=== PATIENT | male | born 1980 | race Caucasian/White ===

== ENCOUNTER 2016-07-17 19:00 | Emergency (ER) ==
[2016-07-17 19:13] VITALS: BP 177/78; TEMP 101.6; BMI 25.0
[2016-07-17 19:36] LABS: FLU INTERNAL QC INTERNAL QC VALID; RAPID FLU A NEGATIVE (NEGATIVE); RAPID FLU B NEGATIVE (NEGATIVE)
--- NOTE | 2016-07-17 20:03 | ED.PDOC ---
General ED Provider: Dr. TRELL PARISI-ER Chief Complaint: Chest Wall Injury/Pain Stated Complaint: jeniffer been coughing for a week... Time Seen by Physician: 19:05 Mode of Arrival: Walk-In Information Source: Patient Exam Limitations: No limitations Nursing and Triage Documentation Reviewed and Agree: Yes Respiratory Complaint Exam - Respiratory Complaint/Exam Onset/Duration: 7 days Symptoms Are: Still present Timing: Intermittent Initial Severity: Mild Current Severity: Mild Location: Chest Character: Reports: Productive cough Aggravating: Reports: URI Alleviating: Reports: None Associated Signs and Symptoms: Reports: Fever, URI, Nasal congestion. Denies: Rapid breathing, Dyspnea, Chills, Chest pain, Pleuritic chest pain, Wheezing, Hemoptysis, Dizziness, Calf pain, Calf swelling, Edema, Hoarseness, Sinus discomfort, Vomiting, Sore throat, Weight loss, Decreased oral intake, Increased thirst, Increased appetite, Increased urination Related History: Reports: Similar episode History of Healthcare-Acquired Pneumonia: No Related Surgical History: Reports: None Pulmonary Embolism Risk Factors: Smoking Cardiac Risk Factors: Reports: Smoking Tuberculosis Risk Factors: Reports: Smoking Status Asthmaticus Risk Factors: Reports: None Home Oxygen Use: No Recent Stress Test: No Recent Echo/LV Function: No Current Antibiotic Use: No Current Asthma Medication Use: No Respiratory Distress: None Inadequate Respiratory Effort: No Dysphagia Present: No Stridor Present: No JVD Present: No Accessory Muscle Use: No Retractions: Not Present Diminished Breath Sounds: No Sinus Tenderness: None Grunting Respirations: No Kussmaul Respirations: No Differential Diagnoses: Pneumonia, Bronchitis Review of Systems - Review Of Systems Constitutional: Reports: Fever Eyes: Reports: No symptoms Ears, Nose, Mouth, Throat: Reports: Nose discharge Respiratory: Reports: Cough Cardiac: Reports: No symptoms GI: Reports: No symptoms : Reports: No symptoms Musculoskeletal: Reports: No symptoms Skin: Reports: No symptoms Neurological: Reports: No symptoms Endocrine: Reports: No symptoms Hematologic/Lymphatic: Reports: No symptoms All Other Systems: Reviewed and Negative Past Medical History - Past Medical History Endocrine: Reports: None Cardiovascular: Reports: None Respiratory: Reports: None Hematological: Reports: None Gastrointestinal: Reports: None Genitourinary: Reports: None Neuro/Psych: Reports: None Musculoskeletal: Reports: Back Pain Cancer: Reports: None - Surgical History General Surgical History: Reports: Hernia Repair, Other (HERNIA REPAIR ABSCESS I /D) - Family History Family History: Reports: Unknown - Social History Smoking Status: Current every day smoker Hx Substance Use: No Alcohol Screening: Occasionally Lives: With family Physical Exam - Physical Exam Appearance: Well-appearing, No pain distress, Well-nourished Eyes: JESSICA, EOMI, Conjunctiva clear ENT: Ears normal, Nose normal, Oropharynx normal Neck: Supple Respiratory: Crackles, Rhonchi Cardiovascular: RRR GI/: Soft Musculoskeletal: Normal strength, ROM intact, No edema, No calf tenderness Skin: Warm, Dry, Normal color Neurological: Sensation intact, Motor intact, Reflexes intact, Cranial nerves intact, Alert, Oriented Psychiatric: Affect appropriate, Mood appropriate Interpretation - Radiology Interpretation Radiology Interpretation By: ED Physician Radiology Results: Positive Exam Interpreted: CXR Critical Care Note - Critical Care Note Total Time (mins): 0 Course - Course Orders, Labs, Meds: Lab Review 07/17/16 19:15 Influenza A (Rapid) Negative Influenza B (Rapid) Negative Orders Category Date Time Status MOLECULAR GROUP A STREP Stat LAB 07/17/16 19:15 Results RAPID FLU A/B Stat LAB 07/17/16 19:15 Completed STREP SCREEN Stat LAB 07/17/16 19:15 Results CXR [CHEST, 2 VIEWS PA & LAT] Stat RADS 07/17/16 19:20 Taken Vital Signs: Temp Pulse Resp BP Pulse Ox 07/17/16 19:02 101.6 F H 106 H 20 177/78 H 95 Departure - Departure Time of Disposition: 20:03 Disposition: HOME SELF-CARE Discharge Problem: Bronchitis, Lung nodule Instructions: Acute Bronchitis (ED) Condition: Good Pt referred to PMD for follow-up: Yes Additional Instructions: augmentin 875mg bid x 7 days=--medrol dose pack--tessalon perles 200mg tid prn cough 30--stop smoking--f/u with pcp for further evaluation of lung nodule Allergies/Adverse Reactions: Allergies Penicillins Adverse Reaction (Verified 07/17/16 19:07) Pt states, "am possibly allergic to penicillin" Home Medications: Ambulatory Orders 1 [No Reported Medications] 0 mg PO DAILY 12/22/12 Disposition Discussed With: Patient
--- NOTE | 2016-07-17 20:14 | DI ---
EXAM: Chest, two views, 07/17/2016 HISTORY: Cough and fever COMPARISON: 04/10/2015 FINDINGS / IMPRESSION: Cardiomediastinal contours appear within normal limits. Benign postinflamma tory calcification of the right lung is stable. There is no pulmonary consolidation, effusion or pneumothorax. No acute cardiopulmonary process.
== END 2016-07-17 20:12 | disposition home or self-care (01) ==
LOC: ED 19:00
DX: J20.9 Acute bronchitis, unspecified (principal); R91.1 Solitary pulmonary nodule; F17.210 Nicotine dependence, cigarettes, uncomplicated
CPT/HCPCS: 87651; 87804; 87880; 99283

== ENCOUNTER 2016-11-17 12:40 | Emergency (ER) ==
[2016-11-17 12:48] VITALS: BP 127/57; TEMP 97.9; BMI 26.2
[2016-11-17] MEDS ORDERED: TORADOL IM STA (12:58)
[2016-11-17] MEDS ORDERED: BACTRIM DS 800/160 MG PO STA (12:58)
--- NOTE | 2016-11-17 13:01 | ED.PDOC ---
General ED Provider: Dr. AMANUEL REEDER Chief Complaint: Abscess Stated Complaint: left armpit, has boil, swelling, redness, painful. Time Seen by Physician: 12:59 Mode of Arrival: Walk-In Information Source: Patient Nursing and Triage Documentation Reviewed and Agree: Yes Skin Complaint Exam - Skin/Soft Tissue Complaint/Exam Symptoms Are: Still present Timing: Constant Initial Severity: Mild Current Severity: Mild Character: Reports: Redness, Swelling, Raised Aggravating: Reports: None Alleviating: Reports: None Associated Signs and Symptoms: Denies: Fever, Chills, Itching, Drainage, Bruising, Tenderness, Red streaks, Joint swelling Related Surgical History: Reports: None Recent Exposure to Others w/Similar Symptoms: No Skin Findings: Present: Erythema, Induration Differential Diagnoses: Abscess, Cellulitis Review of Systems - Review Of Systems Constitutional: Reports: No symptoms Eyes: Reports: No symptoms Ears, Nose, Mouth, Throat: Reports: No symptoms Respiratory: Reports: No symptoms Cardiac: Reports: No symptoms GI: Reports: No symptoms : Reports: No symptoms Musculoskeletal: Reports: No symptoms Skin: Reports: No symptoms Neurological: Reports: No symptoms Endocrine: Reports: No symptoms Hematologic/Lymphatic: Reports: No symptoms All Other Systems: Reviewed and Negative Past Medical History - Past Medical History Previously Healthy: Yes Endocrine: Reports: None Cardiovascular: Reports: None Respiratory: Reports: None Hematological: Reports: None Gastrointestinal: Reports: None Genitourinary: Reports: None Neuro/Psych: Reports: None Musculoskeletal: Reports: Back Pain Cancer: Reports: None - Surgical History General Surgical History: Reports: Hernia Repair, Other (HERNIA REPAIR ABSCESS I /D) - Family History Family History: Reports: Unknown - Social History Smoking Status: Current every day smoker Hx Substance Use: No Alcohol Screening: Occasionally - Immunizations Tetanus Shot up to Date: Yes Physical Exam - Physical Exam Appearance: Well-appearing, No pain distress, Well-nourished Eyes: JESSICA, EOMI, Conjunctiva clear ENT: Ears normal, Nose normal, Oropharynx normal Respiratory: Airway patent, Breath sounds clear, Breath sounds equal, Respirations nonlabored Cardiovascular: RRR, Pulses normal, No rub, No murmur GI/: Soft, Nontender, No masses, Bowel sounds normal, No Organomegaly Musculoskeletal: Normal strength, ROM intact, No edema, No calf tenderness Skin: Warm, Dry, Normal color Neurological: Sensation intact, Motor intact, Reflexes intact, Cranial nerves intact, Alert, Oriented Psychiatric: Affect appropriate, Mood appropriate Critical Care Note - Critical Care Note Total Time (mins): 0 Course - Course Orders, Labs, Meds: Orders Category Date Time Status Ketorolac Tromethamine [Toradol] MEDS 11/17/16 12:58 Discontinued 30 mg IM ONCE STA Sulfamethoxazole/Trimethoprim [Bactrim Ds 800/160 mg] MEDS 11/17/16 12:58 Discontinued 1 tab PO ONCE STA Medications Discontinued Medications Generic Name Dose Route Start Last Admin Trade Name Freq PRN Reason Stop Dose Admin Ketorolac Tromethamine 30 mg 11/17/16 12:58 Toradol IM 11/17/16 12:59 ONCE STA Trimethoprim/Sulfamethoxazole 1 tab 11/17/16 12:58 Bactrim Ds 800/160 Mg PO 11/17/16 12:59 ONCE STA Vital Signs: Temp Pulse Resp BP Pulse Ox 11/17/16 12:43 97.9 F 89 16 127/57 L 96 Departure - Departure Time of Disposition: 13:01 Disposition: HOME SELF-CARE Discharge Problem: Abscess Instructions: Abscess (ED) Condition: Stable Pt referred to PMD for follow-up: Yes Additional Instructions: Take medication with food, Tylenol prn f/u in [facility] in 3 days Prescriptions: Sulfamethoxazole/Trimethoprim [Bactrim Ds 800/160 mg] 1 tab PO Q12HR #20 tablet Hydrocodone/Acetaminophen [[place] 5-325 Tablet] 1 tab PO TID PRN #10 tablet PRN Reason: PAIN Allergies/Adverse Reactions: Allergies Penicillins Adverse Reaction (Verified 07/17/16 19:07) Pt states, "am possibly allergic to penicillin" Home Medications: Ambulatory Orders 1 [No Reported Medications] 0 mg PO DAILY 12/22/12 Hydrocodone/Acetaminophen [[place] 5-325 Tablet] 1 tab PO TID PRN #10 tablet 11/17 Sulfamethoxazole/Trimethoprim [Bactrim Ds 800/160 mg] 1 tab PO Q12HR #20 tablet 11/17/16 Disposition Discussed With: Patient
== END 2016-11-17 13:28 | disposition home or self-care (01) ==
LOC: ED 12:40
DX: L02.412 Cutaneous abscess of left axilla (principal); F17.210 Nicotine dependence, cigarettes, uncomplicated
CPT/HCPCS: 96372; 99282

== ENCOUNTER 2017-06-15 12:47 | Emergency (ER) ==
[2017-06-15 13:03] VITALS: BP 156/87; BMI 26.2
[2017-06-15] MEDS ORDERED: MOTRIN SUSP PO STA (13:11)
--- NOTE | 2017-06-15 13:51 | ED.PDOC ---
General ED Provider: Dr. TRELL PARISI-ER Chief Complaint: Fever Stated Complaint: jeniffer been sick for 4 days with cough and fever Time Seen by Physician: 13:00 Mode of Arrival: Walk-In Information Source: Patient Exam Limitations: No limitations Nursing and Triage Documentation Reviewed and Agree: Yes Reviewed sepsis parameters & appropriate labs ordered?: Yes System Inflammatory Response Syndrome: Not Applicable Sepsis Protocol: For patient's 13 years and over: Temp is 96.8 and below OR 101 and greater Pulse >90 BPM Resp >20/minute Acutely Altered Mental Status Are patient's symptoms suggestive of a new infection, such as: -Pneumonia -Skin, Soft Tissue -Endocarditis -UTI -Bone, Joint Infection -Implantable Device -Acute Abdominal Infection -Wound Infection -Meningitis -Blood Stream Catheter Infection -Unknown Respiratory Complaint Exam - Respiratory Complaint/Exam Onset/Duration: 4 days Symptoms Are: Still present Timing: Intermittent Initial Severity: Mild Current Severity: Moderate Location: Nose, Chest Character: Reports: Productive cough Aggravating: Reports: URI Associated Signs and Symptoms: Reports: Fever, Chills, URI, Nasal congestion, Sore throat. Denies: Rapid breathing, Dyspnea, Chest pain, Pleuritic chest pain , Wheezing, Hemoptysis, Dizziness, Calf pain, Calf swelling, Edema, Hoarseness, Sinus discomfort, Vomiting, Weight loss, Decreased oral intake, Increased thirst , Increased appetite, Increased urination History of Healthcare-Acquired Pneumonia: No Home Oxygen Use: No Recent Stress Test: No Recent Echo/LV Function: No Current Antibiotic Use: No Current Asthma Medication Use: No Respiratory Distress: None Inadequate Respiratory Effort: No Dysphagia Present: No Stridor Present: No JVD Present: No Accessory Muscle Use: No Retractions: Not Present Diminished Breath Sounds: No Sinus Tenderness: None Grunting Respirations: No Kussmaul Respirations: No Differential Diagnoses: Bronchitis, URI, Influenza Review of Systems - Review Of Systems Constitutional: Reports: Fever Eyes: Reports: No symptoms Ears, Nose, Mouth, Throat: Reports: No symptoms Respiratory: Reports: Cough Cardiac: Reports: No symptoms GI: Reports: No symptoms : Reports: No symptoms Musculoskeletal: Reports: No symptoms Skin: Reports: No symptoms Neurological: Reports: No symptoms Endocrine: Reports: No symptoms Hematologic/Lymphatic: Reports: No symptoms All Other Systems: Reviewed and Negative Past Medical History - Past Medical History Previously Healthy: Yes Endocrine: Reports: None Cardiovascular: Reports: None Respiratory: Reports: None Hematological: Reports: None Gastrointestinal: Reports: None Genitourinary: Reports: None Neuro/Psych: Reports: None Musculoskeletal: Reports: Back Pain Cancer: Reports: None - Surgical History General Surgical History: Reports: Hernia Repair, Other (HERNIA REPAIR ABSCESS I /D) - Family History Family History: Reports: Unknown - Social History Smoking Status: Current every day smoker, Heavy tobacco smoker Hx Substance Use: No Alcohol Screening: Occasionally Physical Exam - Physical Exam Appearance: Well-appearing, No pain distress, Well-nourished Eyes: JESSICA ENT: Rhinorrhea Neck: Supple Respiratory: Rhonchi Cardiovascular: RRR, Pulses normal, No rub, No murmur GI/: Soft, Nontender, No masses, Bowel sounds normal, No Organomegaly Musculoskeletal: Normal strength, ROM intact, No edema, No calf tenderness Skin: Warm, Dry, Normal color Neurological: Sensation intact, Motor intact, Reflexes intact, Cranial nerves intact, Alert, Oriented Psychiatric: Affect appropriate, Mood appropriate Critical Care Note - Critical Care Note Total Time (mins): 0 Course - Course Orders, Labs, Meds: Lab Review 06/15/17 13:10 Influenza A (Rapid) Negative by naat Influenza B (Rapid) Positive by naat H Orders Category Date Time Status FLU A/B MOLECULAR Stat LAB 06/15/17 13:10 Completed MOLECULAR GROUP A STREP Stat LAB 06/15/17 13:10 Completed Ibuprofen Susp [Motrin Susp] MEDS 06/15/17 13:11 Discontinued 800 mg PO ONCE STA Medications Discontinued Medications Generic Name Dose Route Start Last Admin Trade Name Freq PRN Reason Stop Dose Admin Ibuprofen 800 mg 06/15/17 13:11 06/15/17 13:21 Motrin Susp PO 06/15/17 13:12 800 mg ONCE STA Administration Vital Signs: Temp Pulse Resp BP Pulse Ox 06/15/17 12:59 101.2 F H 108 H 20 156/87 H 95 Departure - Departure Time of Disposition: 13:50 Disposition: HOME SELF-CARE Discharge Problem: Influenza A, Bronchitis Instructions: Influenza (ED) Condition: Good Pt referred to PMD for follow-up: Yes IPMP verified?: No Additional Instructions: zpack--tessalon perles 200mg tid prn cough 30--avoid cig smoking--lots of fluids and rest--motrin for temp and aches Allergies/Adverse Reactions: Allergies Penicillins Adverse Reaction (Verified 06/15/17 13:03) Pt states, "am possibly allergic to penicillin" Home Medications: Ambulatory Orders 1 [No Reported Medications] 0 mg PO DAILY 12/22/12 Disposition Discussed With: Patient
[2017-06-15 14:19] VITALS: TEMP 98.8
== END 2017-06-15 14:19 | disposition home or self-care (01) ==
LOC: ED 12:47
DX: J10.1 Influenza due to other identified influenza virus with other respiratory manifestations (principal); J40 Bronchitis, not specified as acute or chronic; F17.210 Nicotine dependence, cigarettes, uncomplicated
CPT/HCPCS: 87502; 87651; 99283

== ENCOUNTER 2018-03-28 14:59 | Emergency (ER) ==
[2018-03-28 15:03] VITALS: BP 120/86; TEMP 98.6; BMI 25.6
--- NOTE | 2018-03-28 15:25 | ED.PDOC ---
General ED Provider: Dr. ISSAC BRANDT Chief Complaint: Fever Stated Complaint: states the thinks that the has fever and upper respiratory symptoms or he may have sinusitis. Time Seen by Physician: 15:25 Mode of Arrival: Walk-In Information Source: Patient Exam Limitations: No limitations Primary Care Provider: MELISSA CHUNG Seen Within Last 72 Hours for Same Complaint By: ED Nursing and Triage Documentation Reviewed and Agree: No Does patient meet sepsis criteria?: No System Inflammatory Response Syndrome: Not Applicable Sepsis Protocol: For patient's 13 years and over: Temp is 96.8 and below OR 101 and greater Pulse >90 BPM Resp >20/minute Acutely Altered Mental Status Are patient's symptoms suggestive of a new infection, such as: -Pneumonia -Skin, Soft Tissue -Endocarditis -UTI -Bone, Joint Infection -Implantable Device -Acute Abdominal Infection -Wound Infection -Meningitis -Blood Stream Catheter Infection -Unknown Respiratory Complaint Exam - Respiratory Complaint/Exam Onset/Duration: 2 days Symptoms Are: Still present Timing: Constant Initial Severity: Moderate Current Severity: Moderate Location: Nose, Chest Character: Reports: Productive cough (green sputum ) Aggravating: Reports: None Alleviating: Reports: None Associated Signs and Symptoms: Reports: Dyspnea Related Surgical History: Reports: None Pulmonary Embolism Risk Factors: None Cardiac Risk Factors: Reports: None Pseudomonas Risk Factors: Reports: None Tuberculosis Risk Factors: Reports: None Status Asthmaticus Risk Factors: Reports: None Home Oxygen Use: No Recent Stress Test: No Recent Echo/LV Function: No Current Antibiotic Use: No Current Asthma Medication Use: No Respiratory Distress: None Inadequate Respiratory Effort: No Dysphagia Present: No Stridor Present: No JVD Present: No Accessory Muscle Use: No Retractions: Not Present Diminished Breath Sounds: No Sinus Tenderness: None Grunting Respirations: No Kussmaul Respirations: No Differential Diagnoses: Bronchitis Review of Systems - Review Of Systems Constitutional: Reports: Fever Eyes: Reports: No symptoms Ears, Nose, Mouth, Throat: Reports: Throat pain Respiratory: Reports: Cough Cardiac: Reports: No symptoms GI: Reports: No symptoms : Reports: No symptoms Musculoskeletal: Reports: No symptoms Skin: Reports: No symptoms Neurological: Reports: No symptoms Endocrine: Reports: No symptoms Hematologic/Lymphatic: Reports: No symptoms All Other Systems: Reviewed and Negative Past Medical History - Past Medical History Previously Healthy: Yes Endocrine: Reports: None Cardiovascular: Reports: None Respiratory: Reports: None Hematological: Reports: None Gastrointestinal: Reports: None Genitourinary: Reports: None Neuro/Psych: Reports: None Musculoskeletal: Reports: Back Pain Cancer: Reports: None - Surgical History General Surgical History: Reports: Hernia Repair, Other (HERNIA REPAIR ABSCESS I /D) - Family History Family History: Reports: Unknown - Social History Smoking Status: Current every day smoker, Heavy tobacco smoker Hx Substance Use: No Alcohol Screening: Occasionally - Immunizations Tetanus Shot up to Date: No Physical Exam - Physical Exam Appearance: Ill-appearing Ill-appearing: Mild Pain Distress: Mild Eyes: JESSICA, EOMI, Conjunctiva clear ENT: Oropharynx normal, Rhinorrhea, Erythema (thorat ) Neck: Supple Respiratory: Airway patent, Breath sounds clear, Breath sounds equal, Respirations nonlabored Cardiovascular: RRR, Pulses normal, No rub, No murmur GI/: Soft, Nontender, No masses, Bowel sounds normal, No Organomegaly Musculoskeletal: Normal strength, ROM intact Skin: Warm, Dry, Normal color Neurological: Sensation intact, Motor intact, Reflexes intact, Alert, Oriented Psychiatric: Anxious Critical Care Note - Critical Care Note Total Time (mins): 0 Course - Course Orders, Labs, Meds: Lab Review 03/28/18 15:24 Influ A Molecular Assay Negative by naat Influ B Molecular Assay Negative by naat Orders Category Date Time Status FLU A & B MOLECULAR [FLU A/B MOLECULAR] Stat LAB 03/28/18 15:24 Completed RAPID STREP SCREEN [MOLECULAR GROUP A STREP] Stat LAB 03/28/18 15:24 Completed Vital Signs: Temp Pulse Resp BP Pulse Ox 03/28/18 15:00 98.6 F 105 H 18 120/86 97 Departure - Departure Time of Disposition: 16:14 Disposition: HOME SELF-CARE Discharge Problem: Acute bronchitis Qualifiers: Bronchitis organism: other organism Qualified Code(s): J20.8 - Acute bronchitis due to other specified organisms Instructions: Acute Bronchitis (ED) Condition: Fair Pt referred to PMD for follow-up: Yes IPMP verified?: Yes Additional Instructions: Take Medications as prescribed Follow up with PCP in 3 days Quit smoking Prescriptions: Azithromycin 500 mg PO DAILY LAB #3 tablet Prednisone 20 mg PO DAILYWM #5 tablet Allergies/Adverse Reactions: Allergies Penicillins Adverse Reaction (Verified 03/28/18 15:03) Pt states, "am possibly allergic to penicillin" Home Medications: Ambulatory Orders 1 [No Reported Medications] 0 mg PO DAILY 12/22/12 Azithromycin 500 mg PO DAILY LAB #3 tablet 03/28/18 Prednisone 20 mg PO DAILYWM #5 tablet 03/28/18 Disposition Discussed With: Patient
== END 2018-03-28 16:20 | disposition home or self-care (01) ==
LOC: ED 14:59
DX: J20.9 Acute bronchitis, unspecified (principal); F17.210 Nicotine dependence, cigarettes, uncomplicated
CPT/HCPCS: 87502; 87651; 99283